=== PATIENT | male | born 1960 | race Caucasian/White ===

== ENCOUNTER 2017-03-17 10:49 | Emergency (ER) | payer BC ==
--- NOTE | 2017-03-17 11:26 | ED ---
General Adult HPI - General Chief complaint: Extremity Problem,Nontraumatic Stated complaint: LEFT HEEL PAIN Time Seen by Provider: 03/17/17 11:19 Source: family, RN notes reviewed Mode of arrival: ambulatory Limitations: no limitations - History of Present Illness Initial comments: Patient 56-year-old male who presents emergency room today with a chief complaint of pain to the left heel. He does admit that he's been following up with both orthopedics and a environmental health safety manager for a spur. He does not pains been worse the last day it's worse with ambulation. Does admit that he took one of his 's Vega's last night to help him sleep. She is not been taking is ibuprofen this doesn't seem to help with pain. Patient denies any other complaints or associated symptoms. Denies any injury or trauma. Patient denies any recent fever, chills, shortness of breath, chest pain, back pain, abdominal pain, nausea or vomiting, numbness or tingling, dysuria or hematuria, constipation or diarrhea, headaches or visual changes, or any other complaints. - Related Data Home Medications Medication Instructions Recorded Confirmed Metoprolol Tartrate [Lopressor] 25 mg PO DAILY 07/07/14 03/17/17 Brimonidine Tartrate/Timolol 1 drop BOTH EYES DAILY 04/09/15 03/17/17 [Combigan 0.2%/0.5% Ophth Soln] Allergies Allergy/AdvReac Type Severity Reaction Status Date / Time erythromycin base Allergy Dyspnea Verified 03/17/17 12:38 [From E-Mycin] Review of Systems ROS Statement: Those systems with pertinent positive or pertinent negative responses have been documented in the HPI. ROS Other: All systems not noted in ROS Statement are negative. Past Medical History Past Medical History: Eye Disorder, Hypertension Additional Past Medical History / Comment(s): GLAUCOMA. HX KIDNEY STONES. Shingles History of Any Multi-Drug Resistant Organisms: None Reported Additional Past Surgical History / Comment(s): ESWL X3. EXC CATARACTS ADITYA. Past Anesthesia/Blood Transfusion Reactions: Motion Sickness, Postoperative Nausea & Vomiting (PONV) Past Psychological History: No Psychological Hx Reported Smoking Status: Never smoker Past Alcohol Use History: Rare Past Drug Use History: None Reported General Exam - General Exam Comments Initial Comments: General: The patient is awake and alert, in no distress, and does not appear acutely ill. Neck: The neck is supple, there is no tenderness or JVD. Cardiovascular: There is a regular rate and rhythm. No murmur, rub or gallop is appreciated. Respiratory: Lungs are clear to auscultation, respirations are non-labored, breath sounds are equal. No wheezes, stridor, rales, or rhonchi. Musculoskeletal: Patient has normal appearance of the left foot no obvious deformity. He shows good range of motion both flexion and extension of the left ankle. No tenderness down to the left foot. No tenderness to left ankle. Patient does have tenderness to the posterior aspect of the heel. Sensation is intact pulses equal bilaterally 2+ per strength 5/5. Neurological: A&O x 3. CN II-XII intact, There are no obvious motor or sensory deficits. Coordination appears grossly intact. Speech is normal. Skin: Skin is warm and dry and no rashes or lesions are noted. Psychiatric: Normal mood and affect. Limitations: no limitations Course Vital Signs 03/17/17 10:50 Temperature 98.4 F Pulse Rate 67 Respiratory 20 Rate Blood Pressure 157/89 O2 Sat by Pulse 99 Oximetry Medical Decision Making - Medical Decision Making Patient x-ray reviewed shows calcaneal spur. Patient advised to begin using anti-inflammatories and to ice elevate the area. He does have an appointment with his environmental health safety manager coming this week. Disposition Clinical Impression: Heel spur Disposition: HOME SELF-CARE Condition: Good Instructions: Heel Spur (ED) Additional Instructions: Please use medication as discussed. Please follow-up with family doctor in the next 2 days of symptoms have not improved. Please return to emergency room if the symptoms increase or worsen or for any other concerns. Referrals: Tom Fitzpatrick MD [Primary Care Provider] - 1-2 days Time of Disposition: 12:42
--- NOTE | 2017-03-17 12:35 | XR ---
EXAMINATION TYPE: XR foot complete LT , 3 VIEWS DATE OF EXAM ORDERED: 03/17/2017 HISTORY: Pain. COMPARISON: None. FINDINGS: There are degenerative changes in the left first MTP joint. There are both plantar and john caneal spurs. There are hammertoe deformities of the second through fifth digits. No acute osseous le theodore is seen. IMPRESSION: 1. NO ACUTE OSSEOUS LESION. 2. HAMMERTOE DEFORMITIES. 3. CALCANEAL SPURS. 4. DEGENERATIVE CHANGE.
[2017-03-17 13:03] VITALS: BP 162/75; PULSE 71; RESP 16; TEMP 98
== END 2017-03-17 13:00 | disposition home or self-care (01) ==
LOC: EC 10:49
DX: M77.32 Calcaneal spur, left foot (principal); I10 Essential (primary) hypertension; Z79.899 Other long term (current) drug therapy; Z88.1 Allergy status to other antibiotic agents
CPT/HCPCS: 99283

== ENCOUNTER 2018-07-08 10:57 | Emergency (ER) | payer OTHER, BC ==
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
[2018-07-08 11:11] VITALS: TEMP 98.5
[2018-07-08 11:12] LABS: Glucose,Whole Blood 114 mg/dL (75-99)
[2018-07-08] MEDS ORDERED: KETOROLAC 30 MG/ML 1 ML VIAL IVP STA (11:14)
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
[2018-07-08 12:02] LABS: Appearance,Urine Clear (Clear); Bilirubin,Urine Negative (Negative); Blood,Urine Negative (Negative); Color,Urine Yellow; Glucose,Urine (UA) Negative (Negative); Ketones,Urine Negative (Negative); Nitrite,Urine Negative (Negative); Protein,Urine Negative (Negative); Urobilinogen,Urine <2.0 mg/dL (<2.0)
[2018-07-08 12:03] LABS: Leukocyte Esterase,Urine Negative (Negative)
[2018-07-08 12:17] VITALS: BP 150/89; PULSE 77; RESP 16
== END 2018-07-08 12:26 | disposition home or self-care (01) ==
LOC: EC 10:57
DX: Z04.1 Encounter for examination and observation following transport accident (principal); I10 Essential (primary) hypertension; Z79.899 Other long term (current) drug therapy; Z88.1 Allergy status to other antibiotic agents
CPT/HCPCS: 36415; 81003; 72100; 99284; 96374; J1885

== ENCOUNTER 2018-12-15 18:00 | Emergency (ER) | payer BC ==
[2018-12-15] MEDS ORDERED: KETOROLAC 30 MG/ML 1 ML VIAL IVP STA (18:12)
--- NOTE | 2018-12-15 18:26 | ED ---
General Adult HPI - General Chief complaint: Urogenital Stated complaint: kidney stone Time Seen by Provider: 12/15/18 18:10 Source: patient, family Mode of arrival: ambulatory Limitations: no limitations - History of Present Illness Initial comments: Dictation was produced using [employer] dictation software. please excuse any grammatical, word or spelling errors. Chief Complaint: 58-year-old male with known history of nephrolithiasis presents with 24 hours of left flank pain. History of Present Illness: Patient is a 58-year-old male who has past medical history of nephrolithiasis. Patient states his last nephrolithiasis attack was 2015. Today he states that he woke up with left-sided flank pain. He states pain is typical of his kidney stone pain. In 2016 had his kidney stone surgically removed by Dr. Dietz his urologist. Patient states he is feeling some chills and some nausea. Patient denies any numbness, tingling or paresthesias. Rest of the ROS is negative. The ROS documented in this emergency department record has been reviewed and confirmed by me. Those systems with pertinent positive or negative responses have been documented in the HPI. All other systems are other negative and/or noncontributory. PHYSICAL EXAM: General Impression: Alert and oriented x3, not in acute distress HEENT: Normocephalic atraumatic, extra-ocular movements intact, pupils equal and reactive to light bilaterally, mucous membranes moist. Cardiovascular: Heart regular rate and rhythm, S1&S2 audible, no murmurs, rubs or gallops Chest: Lungs clear to auscultation bilaterally, no rhonchi, no wheeze, no rales Abdomen: Bowel sounds present, abdomen soft, non-tender, non-distended, no organomegaly Musculoskeletal: Pulses present and equal in all extremities, no peripheral edema Motor: no focal deficits noted Neurological: CN II-XII grossly intact, no focal motor or sensory deficits noted Skin: Intact with no visualized rashes Psych: Normal affect and mood ED course: 58-year-old male presents with clinical presentation consistent with nephrolithiasis. Upon arrival are within acceptable limits. Sugar decision making was made with patient. Recommended that only and ultrasound is needed however he was adamant about getting a CT for stone measurement. Patient given intravenous fluids, pain medications. Laboratory evaluation obtained leukocytosis of 13.8 likely secondary to stress. Metabolic panel is unremarkable. Patient has slight elevation of creatinine which appears improved from baseline. Urinalysis shows [address] of the abdomen and pelvis shows 6 mm stone at the proximal left ureter. Patient given intravenous fluids and analgesia. Patient reevaluated and found to be stable medical condition. Discussed with patient that he will likely pass the stone spontaneously. He does have some his care with urologist. He is told to follow-up with urologist. Return parameters discussed patient patient clear for discharge. - Related Data Home Medications Medication Instructions Recorded Confirmed Metoprolol Tartrate [Lopressor] 25 mg PO DAILY 07/07/14 12/15/18 Brimonidine Tartrate/Timolol 1 drop BOTH EYES DAILY 04/09/15 12/15/18 [Combigan 0.2%/0.5% Ophth Soln] Cholecalciferol [Vitamin D3] 1,000 unit PO DAILY 07/08/18 12/15/18 Folic Acid 0.4 mg PO DAILY 07/08/18 12/15/18 Glucosam/Manuel-Msm1/C/Jovanni/Bosw 1 tab PO DAILY 07/08/18 12/15/18 [Glucosamine-Chondroitin Tablet] Multivitamins, Thera [Multivitamin 1 tab PO DAILY 07/08/18 12/15/18 (formulary)] Turmeric Root Extract [Turmeric] 500 mg PO DAILY 07/08/18 12/15/18 Vitamin E (Dl,Tocopheryl Acet) 400 unit PO DAILY 07/08/18 12/15/18 [Vitamin E] Allergies Allergy/AdvReac Type Severity Reaction Status Date / Time erythromycin base Allergy Dyspnea Verified 12/15/18 18:23 [From E-Mycin] Review of Systems ROS Statement: Those systems with pertinent positive or pertinent negative responses have been documented in the HPI. ROS Other: All systems not noted in ROS Statement are negative. Past Medical History Past Medical History: Eye Disorder, Hypertension Additional Past Medical History / Comment(s): GLAUCOMA. HX KIDNEY STONES. Shingles History of Any Multi-Drug Resistant Organisms: None Reported Additional Past Surgical History / Comment(s): ESWL X3. EXC CATARACTS ADITYA. lithotripsy Past Anesthesia/Blood Transfusion Reactions: Motion Sickness, Postoperative Nausea & Vomiting (PONV) Past Psychological History: No Psychological Hx Reported Smoking Status: Never smoker Past Alcohol Use History: Rare Past Drug Use History: None Reported General Exam Limitations: no limitations Course Vital Signs 12/15/18 18:05 Temperature 97.6 F Pulse Rate 88 Respiratory 18 Rate Blood Pressure 161/90 O2 Sat by Pulse 98 Oximetry Medical Decision Making - Lab Data Result diagrams: 12/15/18 18:26 12/15/18 18:26 Lab Results 12/15/18 12/15/18 12/15/18 Range/Units 18:26 18:26 18:26 WBC 13.8 H (3.8-10.6) k/uL RBC 5.12 (4.30-5.90) m/uL Hgb 12.9 L (13.0-17.5) gm/dL Hct 41.5 (39.0-53.0) % MCV 81.0 (80.0-100.0) fL MCH 25.2 (25.0-35.0) pg MCHC 31.2 (31.0-37.0) g/dL RDW 14.6 (11.5-15.5) % Plt Count 280 (150-450) k/uL Neutrophils % 79 % Lymphocytes % 13 % Monocytes % 5 % Eosinophils % 1 % Basophils % 1 % Neutrophils # 10.9 H (1.3-7.7) k/uL Lymphocytes # 1.8 (1.0-4.8) k/uL Monocytes # 0.7 (0-1.0) k/uL Eosinophils # 0.2 (0-0.7) k/uL Basophils # 0.1 (0-0.2) k/uL Sodium 138 (137-145) mmol/L Potassium 4.2 (3.5-5.1) mmol/L Chloride 103 (98-107) mmol/L Carbon Dioxide 25 (22-30) mmol/L Anion Gap 10 mmol/L BUN 18 (9-20) mg/dL Creatinine 1.29 H (0.66-1.25) mg/dL Est GFR (CKD-EPI)AfAm 71 (>60 ml/min/1.73 sqM) Est GFR (CKD-EPI)NonAf 62 (>60 ml/min/1.73 sqM) Glucose 174 H (74-99) mg/dL Calcium 9.3 (8.4-10.2) mg/dL Urine Color Yellow Urine Appearance Clear (Clear) Urine pH 5.0 (5.0-8.0) Ur Specific [place] 1.011 (1.001-1.035) Urine Protein Negative (Negative) Urine Glucose (UA) Negative (Negative) Urine Ketones Negative (Negative) Urine Blood Moderate H (Negative) Urine Nitrite Negative (Negative) Urine Bilirubin Negative (Negative) Urine Urobilinogen <2.0 (<2.0) mg/dL Ur Leukocyte Esterase Negative (Negative) Urine RBC 116 H (0-5) /hpf Urine WBC <1 (0-5) /hpf Ur Squamous Epith Cells <1 (0-4) /hpf Urine Bacteria Rare H (None) /hpf Urine Mucus Rare H (None) /hpf Disposition Clinical Impression: Nephrolithiasis Disposition: HOME SELF-CARE Condition: Good Instructions (If sedation given, give patient instructions): Kidney Stones (ED) Is patient prescribed a controlled substance at d/c from ED?: No Referrals: Josh Velez MD [STAFF PHYSICIAN] - 1-2 days Time of Disposition: 19:43
[2018-12-15 18:27] VITALS: RESP 18
[2018-12-15 18:37] LABS: Basophils # (A) 0.1 k/uL (0-0.2); Basophils % (A) 1 %; Eosinophils # (A) 0.2 k/uL (0-0.7); Eosinophils % (A) 1 %; HCT 41.5 % (39.0-53.0); HGB 12.9 gm/dL (13.0-17.5); Lymphocytes # (A) 1.8 k/uL (1.0-4.8); Lymphocytes % (A) 13 %; MCH 25.2 pg (25.0-35.0); MCHC 31.2 g/dL (31.0-37.0); Mean Platelet Volume 9.7; Monocytes # (A) 0.7 k/uL (0-1.0); Monocytes % (A) 5 %; Neutrophils # (A) 10.9 k/uL (1.3-7.7); Neutrophils % (A) 79 %; Platelet Count 280 k/uL (150-450); RBC 5.12 m/uL (4.30-5.90); RDW 14.6 % (11.5-15.5); WBC 13.8 k/uL (3.8-10.6)
[2018-12-15 18:43] LABS: Calcium 9.3 mg/dL (8.4-10.2); Potassium 4.2 mmol/L (3.5-5.1)
[2018-12-15 18:46] LABS: Appearance,Urine Clear (Clear); Bacteria,Urine Rare /hpf; Bilirubin,Urine Negative (Negative); Blood,Urine Moderate (Negative); Color,Urine Yellow; Glucose,Urine (UA) Negative (Negative); Ketones,Urine Negative (Negative); Leukocyte Esterase,Urine Negative (Negative); Mucus,Urine Rare /hpf; Nitrite,Urine Negative (Negative); Protein,Urine Negative (Negative); RBC,Urine 116 /hpf (0-5); Specific Gravity,Urine 1.011 (1.001-1.035); Squamous Epithelial Cell,Urine <1 /hpf (0-4); Urobilinogen,Urine <2.0 mg/dL (<2.0); WBC,Urine <1 /hpf (0-5)
[2018-12-15] MEDS ORDERED: SODIUM CHLORIDE 0.9% 1,000 ML IV ONE (18:48)
--- NOTE | 2018-12-15 19:04 | CT ---
EXAMINATION TYPE: CT abdomen pelvis wo con DATE OF EXAM: 12/15/2018 HISTORY: Pt c/o LT side flank pain. Hx renal stones. CT DLP: 2253.9 mGycm. Automated Exposure Control for Dose Reduction was Utilized. TECHNIQUE: CT scan of the abdomen and pelvis is performed without oral or IV contrast. COMPARISON: CT abdomen and pelvis November 10, 2015 FINDINGS: Within the limitations of a non-contrast study, the following observations are made. LUNG BASES: No significant abnormality is appreciated. LIVER/GB: Liver is diffusely low dense consistent with diffuse fatty infiltration. PANCREAS: No significant abnormality is seen. SPLEEN: A splenule and an anterior splenic hilum. ADRENALS: Slight nodular thickening to both adrenal glands favors benign etiology unchanged from prio r. KIDNEYS: Approximately 8 calculi scattered throughout right kidney measuring up to 5 mm in size. No h ydronephrosis or obstructing renal calculi. 3 adjacent small calculi left kidney upper to midpole lev el coronal image 71. There is 6 mm calculus in proximal left ureter coronal image 70 causing mild lef t-sided pyelocaliectasis and mild/moderate left-sided perinephric fluid collection. No renal calculi and bladder. BOWEL: No significant abnormality is seen. GENITAL ORGANS: No gross abnormality seen. LYMPH NODES: No greater than 1cm abdominal or pelvic lymph nodes are appreciated. OSSEOUS STRUCTURES: Moderate disc space narrowing lumbosacral junction. Multilevel facet arthropathy lower lumbar spine. OTHER: No significant additional abnormality is seen. IMPRESSION: Obstructing 6 mm calculus proximal left ureter causing mild left-sided hydronephrosis.
[2018-12-15] MEDS ORDERED: MORPHINE SULFATE 4 MG/ML SYRINGE IVP STA (19:21)
[2018-12-15 19:53] VITALS: BP 154/87; PULSE 87; TEMP 98.8
== END 2018-12-15 19:53 | disposition home or self-care (01) ==
LOC: EC 18:00
DX: N13.2 Hydronephrosis with renal and ureteral calculous obstruction (principal); I10 Essential (primary) hypertension; Z79.899 Other long term (current) drug therapy; Z88.1 Allergy status to other antibiotic agents
CPT/HCPCS: 51798; 36415; 80048; 85025; 81001; 87086; 74176; 99284; 96374; 96375; 96361; J2270; J1885

== ENCOUNTER → 2018-12-21 | Outpatient (CLI) | payer BC ==
--- NOTE | 2018-12-23 15:30 | XR ---
EXAMINATION TYPE: XR KUB DATE OF EXAM: 12/21/2018 HISTORY: Pain Comparison: None.Single KUB is submitted for interpretation. Findings: Right renal calculi: Several right-sided renal calculi noted the largest of which measures of 5.8 mm upper pole right kidney. Right ureteral calculi: None Visualized. Left renal calculi: None Visualized. Left ureteral calculi: Left ureteral calculus noted adjacent to the left L3 transverse process measu ring 8 mm. Pelvic calcifications: None Visualized. Bowel gas pattern is unremarkable. No free air. No mass effects. IMPRESSION: 1. Left ureteral calculus noted adjacent to the left L3 transverse process measuring 8 mm.
== END | disposition home or self-care (01) ==
LOC: RADXRMAIN 11:53
PROVIDERS: ATTEND Urology
DX: N20.2 Calculus of kidney with calculus of ureter (principal)
CPT/HCPCS: 74018

== ENCOUNTER → 2019-01-01 | Outpatient (CLI) | payer BC ==
--- NOTE | 2019-01-01 09:44 | XR ---
EXAMINATION TYPE: XR KUB DATE OF EXAM: 01/01/2019 CLINICAL DATA: 58-year-old male calculus of kidney, [facility] COMPARISON: 12/21/2018 FINDINGS: Bilateral ureteral stents are now in place. Punctate calculi are seen in both kidneys, decreased in b oth size and number from prior exam, 2 mm right upper pole and 2 mm right mid pole. 3 mm left lower p ole. No definite suspicious calcification seen along the course of either ureter. IMPRESSION: Bilateral ureteral stents in place. Punctate bilateral renal calculi remain, decreased in both size a nd number as above. The upper left ureteral calculus is no longer seen.
== END | disposition home or self-care (01) ==
LOC: RADXRMAIN 08:55
PROVIDERS: ATTEND Urology
DX: N20.0 Calculus of kidney (principal); Z96.0 Presence of urogenital implants
CPT/HCPCS: 74018

== ENCOUNTER → 2019-04-14 | Outpatient (CLI) | payer BC ==
--- NOTE | 2019-04-15 07:12 | US ---
EXAMINATION TYPE: US kidneys/renal and bladder DATE OF EXAM: 04/14/2019 COMPARISON: CT dated 12/15/2018, US [birth year]1916 CLINICAL HISTORY: R93.4 History of hydronephrosis f/u. Hx of hydronephrosis. Hx stones, lithotripsy. HTN. EXAM MEASUREMENTS: Right Kidney: 11.7 x 6.0 x 6.6 cm Left Kidney: 11.8 x 5.8 x 6.4 cm Limited exam due to body habitus. Right Kidney: Hypoechoic area seen inferiorly measurin.9 x 2.3 x 2.4 cm. This previously measured 2.1 x 1.8 x 2.4 cm on the exam of 01/31/2016 and appeared more definitively cystic on that examinatio n, suboptimally evaluated on today's exam. Scattered subcentimeter calculi appear nonobstructing with the largest measuring 0.7 x 0.9 x 0.8 cm. Left Kidney: Scattered subcentimeter nonobstructing calculi with the largest measuring 0.9 x 0.7 x 0. 4 and the second largest measuring 0.8 x 0.7 x 0.6 cm. Bladder: Minimal internal echoes seen vs. artifact Bilateral Jets seen: Yes IMPRESSION: 1. Bilateral subcentimeter nonobstructing renal calculi remain. No hydronephrosis of either collectin g system. 2. Few internal echoes in the urinary bladder could be artifactual or relate to debris/blood products . Relation with urinalysis is recommended.
== END | disposition home or self-care (01) ==
LOC: RADUSMAIN 17:56
PROVIDERS: ATTEND Urology
DX: Z09 Encounter for follow-up examination after completed treatment for conditions other than malignant neoplasm (principal); N20.0 Calculus of kidney; R93.41 Abnormal radiologic findings on diagnostic imaging of renal pelvis, ureter, or bladder; Z87.448 Personal history of other diseases of urinary system
CPT/HCPCS: 76770

== ENCOUNTER → 2019-12-29 | Outpatient (CLI) | payer BC ==
--- NOTE | 2019-12-29 09:53 | XR ---
EXAMINATION TYPE: XR KUB DATE OF EXAM: 12/29/2019 HISTORY: Pain Comparison: 01/01/2019 Single KUB is submitted for interpretation. Findings: Right renal calculi: None Visualized. Right ureteral calculi: None Visualized. Left renal calculi: Difficult to exclude 3 mm calculus upper pole left kidney. Left ureteral calculi: None Visualized. Pelvic calcifications: None Visualized. Bowel gas pattern is unremarkable. No free air. No mass effects. IMPRESSION: 1. Difficult to exclude 3 mm calculus upper pole left kidney.
== END | disposition home or self-care (01) ==
LOC: RADXRMAIN 08:32
PROVIDERS: ATTEND Urology
DX: N20.0 Calculus of kidney (principal)
CPT/HCPCS: 74018